=== PATIENT | female | born 1980 | race Caucasian/White ===

== ENCOUNTER 2018-10-06 17:22 | Emergency (ER) | payer OTHER, SELFPAY ==
[~2018-10-06] VITALS: Ht 152.4 cm; Wt 75.7 kg
[2018-10-06 17:34] VITALS: BP 144/69
--- NOTE | 2018-10-06 17:34 | NUR ---
ARRIVAL PATIENT ARRIVED TO ED4 AMBULATORY WITH FAMILY, PATIENT STATES SHE WOKE UP ON THURSDAY, PAIN WITH RANGE OF MOTION, ATTEMPTED TO TREAT HERSELF WITH OVER THE COUNTER MEDICATIONS WITH NO RELIEF. CAME TO THE ED FOR FURTHER EVAL.
[2018-10-06] MEDS ORDERED: NORCO 10MG PO STA (17:36)
[2018-10-06] MEDS ORDERED: TORADOL ONE (17:40)
[2018-10-06] MEDS ORDERED: NORCO 10MG PO ONE (17:41)
--- NOTE | 2018-10-06 17:46 | ER.PDOC ---
General Chief Complaint: Neck/Upper back Pain Stated Complaint: NECK PAIN Time seen by MD: 05:44 Source: patient Exam Limitations: no limitations History of Present Illness Timing/Duration: week Severity/Quality: moderate, radiation Method of Injury: unknown Modifying Factors: improves with immobilization, improves with movement, improves with pain medication, improves with rest Associated Symptoms: muscle spasms, sensory/motor loss ( hand, ulnar n area) Allergies: Coded Allergies: No Known Allergies (Unverified , 10/06/18) Home Meds No Active Prescriptions or Reported Meds Past Medical History Medical History: no pertinent history Surgical History: Social History Smoking: non-smoker Alcohol Use: none Drug Use: none Reviewed Nursing Reviewed: Vital Signs, Abn. Noted Review of Systems All Other Systems: Reviewed and Negative Physical Exam General Appearance: No Apparent Distress, WD/WN HEENT: PERRL/EOMI, Normal ENT Inspection, TMs Normal, Pharynx Normal Neck: Limited Range of Motion, Muscle Spasm, Painful Range of Motion, Paraspinous Muscle Tender, Stiff Neck, Tenderness, Tender Lateral Cardiovascular/Respiratory: Regular Rate, Rhythm, No M/R/G, Normal Peripheral Pulses, No JVD, Normal Breath Sounds, No Respiratory Distress Gastrointestinal: Normal Bowel Sounds, No Organomegaly, No Pulsatile Mass, Non Tender, Soft Back: Normal Inspection, No CVA Tenderness, No Vertebral Tenderness Extremities: No Evidence of Injury, Normal Range of Motion, Non-Tender, No Pedal Edema, Pelvis Stable Neuro/Psych: Alert, mid level java developer nml/symmetrical, mood/effect nml, No Motor/Sensory Deficits, Relexes nml Skin: Normal Color, Warm/Dry Departure Time of Disposition: 18:22 Disposition: 01 HOME, SELF-CARE Impression: Primary Impression: Cervical radiculopathy Condition: Improved Referrals: JUDITH SOFIA PA-C (PCP) PRIMARY CARE PROVIDER Scripts No Active Prescriptions or Reported Meds Duration or Time Spent with Pa: 1 hr FARA JIMENEZ MD Oct 06, 2018 17:46
[2018-10-06 17:57] VITALS: BP 144/69
[2018-10-06] MEDS ORDERED: TORADOL IM ONE (18:00)
== END 2018-10-06 17:55 | disposition home or self-care (01) ==
LOC: ER 17:22
DX: M54.12 Radiculopathy, cervical region (principal)
CPT/HCPCS: 96372; 99283; J1885

== ENCOUNTER 2021-11-13 22:27 | Emergency (ER) | payer OTHER ==
[~2021-11-13] VITALS: Ht 152.4 cm; Wt 88.5 kg
[2021-11-13 22:44] VITALS: BP 155/66
--- NOTE | 2021-11-13 23:03 | DIREP ---
PROCEDURE:XRAY ANKLE MIN 3VWS-RT COMPARISON:None. INDICATIONS:TWISTED RIGHT ANKLE FINDINGS: BONES:Normal. JOINTS:Normal. SOFT TISSUES:Normal. OTHER:No additional findings. CONCLUSION:No acute visible fracture. See above description. Dictated by: Wyatt Mcginnis M.D. on 11/13/2021 at 11:01 PM
[2021-11-13] MEDS ORDERED: TORADOL IM STA (23:20)
--- NOTE | 2021-11-13 23:25 | ER.PDOC ---
General Chief Complaint: Extremities Stated Complaint: ANKLE INJURY Time seen by MD: 23:21 Source: patient Exam Limitations: no limitations History of Present Illness Initial Comments Right ankle pain after she twisted it this evening. Onset: just prior to arrival Where: home Severity: moderate Context: twist Modifying Factors: pain on movement Allergies: Coded Allergies: No Known Allergies (Unverified , 10/06/18) Home Meds No Active Prescriptions or Reported Meds Past Medical History Medical History: asthma Surgical History: Family History Significant Family History: no pertinent family hx Social History Smoking: non-smoker Alcohol Use: none Drug Use: none Review of Systems Constitutional: no symptoms reported EENTM: no symptoms reported Respiratory: no symptoms reported Cardiovascular: no symptoms reported Gastrointestinal: no symptoms reported Musculoskeletal: see HPI All Other Systems: Reviewed and Negative Physical Exam General Appearance: Alert, No Apparent Distress Foot: nml inspection, non-tender Ankle: tenderness (right ankle), swelling (lateral aspect of right ankle) Gait: limited by pain Neuro: sensation nml, motor nml Vascular: no vascular compromise Tendons: tendon function nml Leg/Knee/Thigh: uninjured above ankle Skin: warm/dry Head/ENT: nml inspection, pharynx nml Neck/Back: nml inspection, non-tender Resp/CVS: no resp distress Abdomen: non-tender, no organomegaly Results/Orders Results/Orders Orders - TERRI MARCANO MD Xr Ankle 3v Rt (11/13/21 22:51) Ketorolac Tromethamine (Toradol) (11/13/21 23:20) Vital Signs Date Time Temp Pulse Resp B/P (MAP) Pulse Ox O2 Delivery O2 Flow Rate FiO2 11/13/21 22:44 98.3 75 16 155/66 (95) 99 Room Air 11/13/21 22:44 98.3 75 16 99 11/13/21 22:44 98.3 75 16 Progress Progress X-rays of right ankle shows no acute visible fracture. Patient received a shot of Toradol with improvement in her pain. ER DEPART Departure Time of Disposition: 23:23 Disposition: 01 HOME / SELF CARE / HOMELESS Impression: Primary Impression: Right ankle sprain Additional Impression: Right ankle injury Condition: Improved Referrals: JUDITH SOFIA PA-C (PCP) PRIMARY CARE PROVIDER Additional Instructions: Ice 3 times a day for 3 days Ibuprofen Tramadol Follow-up with your PCP in 1 week Return to ED if worsening pain or concerns Scripts No Active Prescriptions or Reported Meds Duration or Time Spent with Pa: 10 min Problem Qualifiers Primary Impression: Right ankle sprain Encounter type: initial encounter Involved ligament of ankle: unspecified ligament Qualified Codes: S93.401A - Sprain of unspecified ligament of right ankle, initial encounter Additional Impression: Right ankle injury Encounter type: initial encounter Qualified Codes: S99.911A - Unspecified injury of right ankle, initial encounter TERRI MARCANO MD Nov 13, 2021 23:25
[2021-11-13] MEDS ORDERED: TORADOL ONE (23:27)
[2021-11-13 23:34] VITALS: BP 142/68
== END 2021-11-13 23:34 | disposition home or self-care (01) ==
LOC: ER 22:27
DX: S93.401A Sprain of unspecified ligament of right ankle, initial encounter (principal); J45.909 Unspecified asthma, uncomplicated; X50.1XXA Overexertion from prolonged static or awkward postures, initial encounter; Y93.89 Activity, other specified; Y92.89 Other specified places as the place of occurrence of the external cause; Y99.8 Other external cause status
CPT/HCPCS: 73610; 96372; 99283; J1885

== ENCOUNTER 2022-06-14 20:18 | Emergency (ER) | payer MEDICAID ==
[~2022-06-14] VITALS: Ht 149.9 cm; Wt 86.6 kg
[2022-06-14 20:51] VITALS: BP 120/85
--- NOTE | 2022-06-14 21:39 | ER.PDOC ---
General Chief Complaint: Sore Throat Stated Complaint: HEADACHE,SORE THROAT,NAUSEA,BODY ACHE,COUGH Time seen by MD: 21:35 Source: patient Exam Limitations: no limitations History of Present Illness Initial Comments Headache, sore throat, cough, bodyaches and nausea for 2 days. Patient's son has COVID-19. Timing/Duration: gradual Associated Symptoms: mod sore throat, congestion Severity: moderate Allergies: Coded Allergies: No Known Allergies (Unverified , 10/06/18) Home Meds No Active Prescriptions or Reported Meds Past Medical History Medical History: asthma Surgical History: Family History Significant Family History: no pertinent family hx Social History Smoking: non-smoker Alcohol Use: none Drug Use: none Constitutional: no symptoms reported Nose: no symptoms reported Throat: see HPI Respiratory: see HPI Cardiovascular: no symptoms reported Gastrointestinal: see HPI All Other Systems: Reviewed and Negative Physical Exam General Appearance: alert, no distress Head/Neck: head nml inspection, neck nml inspection, trachea midline, no lymphadenopathy, thyroid nml Eyes: eyes nml inspection, PERRL, no nystagmus Mouth: lips, gums nml, no drooling, no thrush, membranes nml Throat: pharynx nml, voice nml, no airway problems, pharyngeal erythema Ears/Nose: nml inspection Respiratory: no resp. distress, lungs clear CVS: reg. rate & rhythm, heart sounds nml Abdomen: non-tender, no organomegaly Extremities: non-tender, ROM nml Skin Exam: Normal Color, Warm/Dry NEURO/PSYCH: oriented X3, mood/effect nml Results/Orders Results/Orders Orders - TERRI MARCANO MD Influenza A&B (06/14/22 20:21) Covid19 Antigen Laury Nemo (06/14/22 20:21) Strep Screen (06/14/22 20:28) Vital Signs Date Time Temp Pulse Resp B/P (MAP) Pulse Ox O2 Delivery O2 Flow Rate FiO2 06/14/22 20:51 98.3 98 16 120/85 (97) 97 Room Air* 0 21 06/14/22 20:51 98.3 98 16 97 06/14/22 20:51 98.3 98 16 Laboratory Tests Test 06/14/22 20:21 Influenza Type A Antigen NEGATIVE (NEG) Influenza Type B Antigen NEGATIVE (NEG) SARS-CoV-2 Antigen (Rapid) NEGATIVE (NEGATIVE) Group A Streptococcus Screen POSITIVE (NEGATIVE) A Progress Progress Patient is negative for flu and COVID. She is positive for strep. ER DEPART Departure Time of Disposition: 21:38 Disposition: 01 HOME / SELF CARE / HOMELESS Impression: Primary Impression: Acute streptococcal pharyngitis Additional Impression: Suspected 2019-nCoV infection Condition: Stable Referrals: JUDITH SOFIA PA-C (PCP) PRIMARY CARE PROVIDER Additional Instructions: Amoxil Vitamin C, D and zinc [id number] as directed Self quarantine at home for 5 days Follow-up with your PCP in 5 days Return to ED if worsening symptoms or concerns Scripts No Active Prescriptions or Reported Meds Duration or Time Spent with Pa: 10 min TERRI MARCANO MD Jun 14, 2022 21:39
[2022-06-14 21:48] VITALS: BP 122/82
== END 2022-06-14 21:48 | disposition home or self-care (01) ==
LOC: ER 20:18
DX: J02.0 Streptococcal pharyngitis (principal); Z20.822 Contact with and (suspected) exposure to COVID-19; R11.0 Nausea; R52 Pain, unspecified; J45.909 Unspecified asthma, uncomplicated
CPT/HCPCS: 87426; 87804; 87880; 99283